=== PATIENT | male | born 1985 | race Caucasian/White ===

== ENCOUNTER 2021-04-12 13:39 | Inpatient (IN) | payer BC, OTHER ==
[~2021-04-12] VITALS: Ht 172.7 cm; Wt 59.6 kg
[~2021-04-12 13:39] MED LIST: VANCOMYCIN HCL 1,000 MG, VIAL MATE ADAPTER 1 EACH in NS 250 ML IV SCH
[2021-04-12 15:14] LABS: BASO % 0.2 % (0.0-1.0); HEMATOCRIT 46.3 % (42.0-52.0); LYMPH # 1.1 10^3/uL (1.5-5.0); LYMPH % 4.5 % (24.0-44.0); MEAN CORPUSCULAR HGB CONC 34.6 g/dl (32.0-36.5); MEAN CORPUSCULAR VOLUME 83.9 fl (80.0-96.0); MONO # 1.1 10^3/uL (0.0-0.8); MONO % 4.3 % (2.0-8.0); NEUTROPHILS # 22.1 10^3/uL (1.5-8.5); NEUTROPHILS % 90.1 % (36.0-66.0); PLATELET COUNT, AUTOMATED 339 10^3/uL (150-450); RED BLOOD COUNT 5.52 10^6/uL (4.30-6.10); WHITE BLOOD COUNT 24.5 10^3/uL (4.0-10.0)
[2021-04-12 15:51] LABS: ALBUMIN 5.2 GM/DL (3.2-5.2); ALT/SGPT 44 U/L (12-78); BILIRUBIN,DIRECT 0.2 MG/DL (0.0-0.2); BILIRUBIN,TOTAL 0.9 MG/DL (0.2-1.0); LIPASE 194 U/L (73-393); TOTAL PROTEIN 8.7 GM/DL (6.4-8.2)
[2021-04-12] MEDS ORDERED: NS 1,000 ML IV ONE (16:00)
[2021-04-12] MEDS ORDERED: ISOVUE-370 76% 100ML VIAL As Ordered ONE (16:00)
[2021-04-12] MEDS ORDERED: ONDANSETRON 4MG/2ML VIAL IV ONE (16:00)
[2021-04-12] MEDS ORDERED: KETOROLAC 30 MG/ML 1ML VIAL IV ONE (16:00)
--- NOTE | 2021-04-12 16:28 | REP ---
INDICATION: abd pain. COMPARISON: None TECHNIQUE: Axial contrast-enhanced images from the lung bases to the pubic symphysis using 100 cc Isovue 370 intravenous contrast material. . This CT examination was performed using the following dose reduction techniques: Automated exposure control, adjustment of mA and/or kv according to the patient's size, and the use of iterative reconstruction technique. FINDINGS: Fatty infiltration to the liver noted without focal hepatic lesion. The spleen, pancreas, gallbladder, bilateral adrenal glands and kidneys are normal. The enteric system including stomach, small, and large bowel appears normal. No evidence for obstruction or acute inflammatory process. Normal terminal ileum and appendix are identified in the right lower quadrant. Pelvis demonstrates normal bladder and age-appropriate prostate/seminal vesicles. No ascites. No free air. No intraperitoneal or retroperitoneal adenopathy. Abdominal aorta and vasculature appear normal. Musculoskeletal structures are intact and without acute osseous abnormality. IMPRESSION: No acute abdominopelvic pathology appreciated. Hepatosteatosis. <Electronically signed by Markell Guillory > 04/12/21 [id number]
[2021-04-12 17:07] LABS: VENOUS BASE EXCESS -8.5 (-2.0-2.0); VENOUS HCO3 17.2 MEQ/L (23.0-27.0); VENOUS PARTIAL PRESSURE CO2 36.5 mmHg (38.0-50.0); VENOUS PH 7.291 UNITS (7.330-7.430); VENOUS STANDARD HCO3 17.5 MEQ/L; VENOUS TOTAL CO2 18.3 MEQ/L (24.0-28.0)
[2021-04-12 17:14] LABS: OSMOLALITY SERUM 294 MOSM/KG (275-295)
[2021-04-12 17:15] LABS: ACETONE/KETONE 23.05 MG/DL (<2.81)
[2021-04-12 17:27] LABS: HEMOGLOBIN A1c 4.7 %
[2021-04-12 18:20] LABS: AMPHETAMINES LEVEL URINE NEGATIVE (NEGATIVE); BARBITURATES URINE NEGATIVE (NEGATIVE); BENZODIAZEPINES URINE NEGATIVE (NEGATIVE); CANNABINOIDS URINE POSITIVE (NEGATIVE); COCAINE METABOLITE URINE NEGATIVE (NEGATIVE); METHADONE URINE NEGATIVE (NEGATIVE); OPIATES URINE NEGATIVE (NEGATIVE); PHENCYCLIDINE URINE NEGATIVE (NEGATIVE)
[2021-04-12 18:22] LABS: CPK CREATINE PHOSPHOKINASE 115 U/L (39-308)
[2021-04-12] MEDS ORDERED: MORPHINE 4 MG/ML 1ML VIAL/SYRINGE (J2270) IV ONE (18:50)
[2021-04-12 19:40] LABS: ACETAMINOPHEN LEVEL < 2.0 UG/ML (10.0-30.0); ETHYL ALCOHOL (ETHANOL) 0.007 % (0.000-0.010); SALICYLATE LEVEL < 1.7 MG/DL (5.0-30.0)
[2021-04-12] MEDS ORDERED: NS 1,000 ML IV SCH (20:30)
[2021-04-12] MEDS ORDERED: ONDANSETRON 4MG/2ML VIAL IV PRN (20:50)
--- NOTE | 2021-04-12 21:01 | HPEPDOC ---
[facility] Medical History & Physical Date of Admission Apr 12, 2021 Date of Service: Apr 12, 2021 History and Physical CHIEF COMPLAINT: Vomiting HISTORY OF PRESENT ILLNESS: This is a 36-year-old male history of Crohn's who presents due to vomiting today. He tells me that starting at 5 AM he woke up feeling nauseous and immed iately started throwing up as what he describes to be very violently. Vomiting happened throughout the day and he started feeling abdominal discomfort which he attributed to muscle cramping from all the vomiting. He says that the vomit was nonbilious and nonbloody. He hasn't had such episodes in the past. He denies any fevers or chills. He denies any diarrhea although he often gets diarrhea due to his history of Crohn's. On review of systems he endorses a mild headache as well as a brief episode of shortness of breath and felt as though his breathing was labored while in the emergency department but since resolved. He tells me his resting heart rate is usually in the 50s and his current heart rate of 90 is high for him. He endorses alcohol use but only very sparingly saying his last drink was last night on a special occasion but he did not drink excessively. History denies drinking antifreeze or car coolant fluid/ ethylene glycol/methanol. He denies any suicidal ideation denies being exposed to fumes in the house heating is not turned on and he was not in a garage with his car running. On further questioning he tells me he smokes cannabis but he's never had vomiting secondary to the cannabis use and his last use was 3 days ago. He denies any eating disorders such as anorexia and bulimia. Denies having a known history of diabetes in himself or the family. Denies any sick contacts. His partners sleeps beside him did not have any symptoms Denies glue sniffing or consumption In the emergency department I asked for a carbon monoxide level, salicylic acid, acetaminophen levels which were negative. Alcohol level also negative Beta hydroxybutyrate level was increased to 23. ABG shows metabolic acidosis. Urine drug screen was negative except for cannabis His blood sugar was found to be low 63 CT abdomen for/pelvis was obtained which was negative for acute pathology IV Zofran was given which resolved patient's nausea and he hasn't vomited since PAST MEDICAL/SURGICAL HISTORY: Crohn's SOCIAL HISTORY: Denies drinking alcohol regularly drinks only sporadically on special occasions last drink was last evening Denies tobacco use Denies illicit drug use other than occasional cannabis use FAMILY HISTORY: Reviewed and none contributory to this admission ALLERGIES: Please see below. REVIEW OF SYSTEMS: 10 point review of systems complete all negative otherwise stated in HPI HOME MEDICATIONS: Please see below. PHYSICAL EXAMINATION: Constitutional: Awake and alert, in no apparent distress ENT: Sclera are clear. Mucosa is moist. Respiratory: Lungs CTA bilaterally. No respiratory distress. No use of accessory muscles. Cardiovascular: RRR S1 and S2 are normal, no murmur Gastrointestinal: Abdomen is soft, non distended, non tender, BS present. Musculoskeletal: No lower extremity edema. RUE 5/5, LUE 5/5, BLE 5/5 Neurologic: No focal neurological deficit. Mental Status: A&O x3, normal affect Skin: Sunburn on both upper extremities and back of neck LABORATORY DATA: See below. IMAGING: CT abdomen/pelvis w IV contrast, impressions: No acute abdominopelvic pathology appreciated. Hepatosteatosis. CXR ordered MICROBIOLOGY: Please see below. ASSESSMENT/PLAN 36-year-old male medical history of Crohn's presents due to excessive vomiting all day found to have high anion gap metabolic acidosis with ketoacidosis and lactic acidosis and is being admitted to the medical service for further workup and management. # High anion gap metabolic acidosis with ketoacidosis and lactic acidosis - Exact etiology not yet clear - Given his hypoglycemia will give him fluids by D5NS, while trending his BMP every 4hrs and checking Mg and Phos. Monitor and replace electrolytes. - If his sugars start to rise enough, will start insulin and monitor his anion gap. - Will obtain blood cultures first then start him on broad spectrum ABx with IV Vanc and Zosyn - Discussed the case with Dr. Gray, possibility of euglycemic DKA, vs alcoholic ketoacidosis, vs sepsis, vs other etiology - I consulted Dr Gray, nephrology, and appreciate his recommendations. - Other rare causes of increase AG metabolic acidosis were excluded as in HPI and labs. # Possible Sepsis, source unknown: meets SIRS (RR>20, WBC>12, HR>90). IVFs. LA 2.2 initially. Fu procalcitonin. Ordered BCx. Started IV abx broad spectrum. Fu CXR. # SOB: Episode was brief and has since resolved. Suspicion of PE is low however f/u d-dimer to essentially exclude PE. Fu CXR. Fu procalcitonin. # Vomiting: now better with zofran. Per patient very violent vomiting all day. Continue Zofran PRN. IVFs. Monitor and replace electrolytes. # Abdominal pain: CT abdomen negative for acute pathology. Lipase level ok. Having regular BMs without diarrhea. Could be MSK from the excessive vomiting earlier. Abdominal pain resolved at this time. # Crohns: Stable # DVT prophylaxis: Lovenox A Yousef Hospitalist Vital Signs Vital Signs Date Time Temp Pulse Resp B/P (MAP) Pulse Ox O2 Delivery O2 Flow Rate FiO2 04/12/21 19:25 19 97 Room Air 04/12/21 18:59 99.2 78 116/70 (85) Laboratory Data Labs 24H Laboratory Tests 2 04/12/21 14:53: Urine Opiates Screen NEGATIVE, Urine Methadone Screen NEGATIVE, Urine Barbiturates Screen NEGATIVE, Urine Phencyclidine Screen NEGATIVE, Urine Amphetamines Screen NEGATIVE, Urine Benzodiazepines Screen NEGATIVE, Urine Cocaine Metabolite Screen NEGATIVE, Urine Cannabinoids Screen POSITIVEH 04/12/21 15:02: Immature Granulocyte % (Auto) 0.9, Neutrophils (%) (Auto) 90.1H, Lymphocytes (%) (Auto) 4.5L, Monocytes (%) (Auto) 4.3, Eosinophils (%) (Auto) 0.0, Basophils (%) (Auto) 0.2, Neutrophils # (Auto) 22.1H, Lymphocytes # (Auto) 1.1L, Monocytes # (Auto) 1.1H, Eosinophils # (Auto) 0.0, Basophils # (Auto) 0.0, Nucleated Red Blood Cells % (auto) 0.0, Urine Color YELLOW, Urine Appearance CLEAR, Urine pH 5.0, Urine Specific [place] 1.019, Urine Protein 1+H, Urine Glucose (UA) NEGATIVE, Urine Ketones 2+H, Urine Blood 1+H, Urine Nitrite NEGATIVE, Urine Bilirubin NEGATIVE, Urine Urobilinogen 0.2, Urine Leukocyte Esterase NEGATIVE, Urine WBC (Auto) 3, Urine RBC (Auto) 1, Urine Hyaline Casts (Auto) 0, Urine Bacteria (Auto) NEGATIVE, Urine Squamous Epithelial Cells 0, Urine Sperm (Auto) , Osmolality 294, Magnesium Level 2.0, Total Bilirubin 0.9, Direct Bilirubin 0.2, Aspartate Amino Transf (AST/SGOT) 43H, Alanine Aminotransferase (ALT/SGPT) 44, Alkaline Phosphatase 63, Total Creatine Kinase 115, Total Protein 8.7H, Albumin 5.2, Albumin/Globulin Ratio 1.5, Lipase 194, Salicylates Level < 1.7L, Acetaminophen Level < 2.0L, Ethyl Alcohol Level 0.007, B-Hydroxybutyrate 23.05H 04/12/21 15:08: POC Glucose (Misc Panel) 63L, POC Sodium (Misc Panel) 138, POC Potassium (Misc Panel) 4.8, POC Chloride (Misc Panel) 106, POC Total CO2 (Misc Panel) 19.0L, POC Blood Urea Nitrogen (Misc Panel 20, POC Ionized Calcium (Misc Panel) 4.7, POC Creatinine (Misc Panel) 0.9, POC Hematocrit (Misc Panel) 48.0 04/12/21 17:00: Blood Gas Bicarbonate Standard 17.5, Venous Blood pH 7.291L, Venous Blood Partial Pressure CO2 36.5L, Venous Blood Partial Pressure O2 55.0H, Venous Blood Total Carbon Dioxide 18.3L, Venous Blood HCO3 17.2L, Venous Blood Oxygen Saturation 87.0H, Venous Blood Base Excess -8.5L, Estimated Mean Plasma Glucose 88, Hemoglobin A1c 4.7, Lactic Acid Level 2.2*H 04/12/21 19:05: Bedside Glucose (Misc Panel) 61L 04/12/21 19:32: Carboxyhemoglobin 1.0 CBC/BMP Laboratory Tests 04/12/21 15:02 Microbiology Microbiology 04/12/21 Respiratory Virus Panel (PCR) ([facility]) - Final, Complete Home Medications No Active Prescriptions or Reported Meds Allergies Coded Allergies: No Known Allergies (Verified , 05/13/03) A-FIB/CHADSVASC A-FIB History Current/History of A-Fib/PAF?: No FREDDIE GAVIRIA MD Apr 12, 2021 20:27
[2021-04-12 21:36] LABS: BLOOD UREA NITROGEN 20 MG/DL (7-18); CALCIUM LEVEL 8.8 MG/DL (8.5-10.1); CARBON DIOXIDE LEVEL 19 MEQ/L (21-32); CHLORIDE LEVEL 102 MEQ/L (98-107); CREATININE FOR GFR 0.87 MG/DL (0.70-1.30); GLOMERULAR FILTRATION RATE > 60.0 (>60); GLUCOSE, FASTING 74 MG/DL (70-100); MAGNESIUM LEVEL 1.9 MG/DL (1.8-2.4); PHOSPHORUS LEVEL 4.2 MG/DL (2.5-4.9); POTASSIUM SERUM 4.5 MEQ/L (3.5-5.1); SODIUM LEVEL 136 MEQ/L (136-145)
[2021-04-12] MEDS: D5W/0.9% SODIUM CHLORIDE 1,000 ML IV SCH (21:50)
[2021-04-12] MEDS ORDERED: PIPERACILLIN/TAZOBACTAM SOD 4.5 GM in D5W MINI-BAG PLUS 50 ML IV ONE (22:00)
[2021-04-12 22:30] VITALS: BP 116/68
[2021-04-12] MEDS ORDERED: MULTIVITAMIN -ADULT INJECTION 10 ML, THIAMINE INJection 100 MG, FOLIC ACID 1 MG in NS 1... IV ONE (23:00)
[2021-04-12] MEDS ORDERED: VANCOMYCIN HCL 750 MG, VIAL MATE ADAPTER 1 EACH in NS 250 ML IV ONE (23:00)
[2021-04-13] MEDS ORDERED: VANCOMYCIN HCL 500 MG in D5W MINI-BAG PLUS 100 ML IV ONE ×2
[2021-04-13] MEDS ORDERED: MAALOX 30 ML SUSP *UDC PO PRN (01:30)
[2021-04-13] MEDS: PANTOPRAZOLE 40MG VIAL (C9113 PER 1) IV SCH (02:05)
[2021-04-13 02:57] LABS: BLOOD UREA NITROGEN 20 MG/DL (7-18); CALCIUM LEVEL 8.2 MG/DL (8.5-10.1); CARBON DIOXIDE LEVEL 24 MEQ/L (21-32); CHLORIDE LEVEL 105 MEQ/L (98-107); CREATININE FOR GFR 1.13 MG/DL (0.70-1.30); GLOMERULAR FILTRATION RATE > 60.0 (>60); GLUCOSE, FASTING 129 MG/DL (70-100); POTASSIUM SERUM 3.7 MEQ/L (3.5-5.1); SODIUM LEVEL 137 MEQ/L (136-145)
[2021-04-13] MEDS: PIPERACILLIN/TAZOBACTAM SOD 4.5 GM in D5W MINI-BAG PLUS 50 ML IV SCH ×4 (03:28→22:06)
[2021-04-13] MEDS: D5W/0.9% SODIUM CHLORIDE 1,000 ML IV SCH ×2 (03:34→11:02)
[2021-04-13 06:00] VITALS: BP 87/50
[2021-04-13 06:29] VITALS: BP 90/62
[2021-04-13 06:37] LABS: HEMATOCRIT 34.7 % (42.0-52.0); MEAN CORPUSCULAR HEMOGLOBIN 29.6 pg (27.0-33.0); MEAN CORPUSCULAR HGB CONC 35.2 g/dl (32.0-36.5); MEAN CORPUSCULAR VOLUME 84.2 fl (80.0-96.0); PLATELET COUNT, AUTOMATED 251 10^3/uL (150-450); RED BLOOD COUNT 4.12 10^6/uL (4.30-6.10); WHITE BLOOD COUNT 11.5 10^3/uL (4.0-10.0)
[2021-04-13 06:41] LABS: HEMOGLOBIN 12.2 g/dl (13.5-17.5)
[2021-04-13 06:45] LABS: ALBUMIN 3.5 GM/DL (3.2-5.2); ALT/SGPT 24 U/L (12-78); BILIRUBIN,TOTAL 1.1 MG/DL (0.2-1.0); BLOOD UREA NITROGEN 19 MG/DL (7-18); CALCIUM LEVEL 8.3 MG/DL (8.5-10.1); CARBON DIOXIDE LEVEL 24 MEQ/L (21-32); CHLORIDE LEVEL 105 MEQ/L (98-107); CREATININE FOR GFR 1.09 MG/DL (0.70-1.30); GLOMERULAR FILTRATION RATE > 60.0 (>60); GLUCOSE, FASTING 89 MG/DL (70-100); PHOSPHORUS LEVEL 3.6 MG/DL (2.5-4.9); SODIUM LEVEL 139 MEQ/L (136-145); TOTAL PROTEIN 5.9 GM/DL (6.4-8.2)
[2021-04-13] MEDS ORDERED: VANCOMYCIN HCL 1,000 MG, VIAL MATE ADAPTER 1 EACH in NS 250 ML IV SCH (07:00)
[2021-04-13] MEDS ORDERED: PERCOCET 5MG/325MG TAB PO ONE (07:00)
--- NOTE | 2021-04-13 07:55 | REP ---
INDICATION: Leukocytosis COMPARISON: None. TECHNIQUE: Portable AP view of the chest FINDINGS: The mediastinum and cardiac silhouette are within normal limits for portable technique. The lung jeff are clear without acute consolidation, effusion, or pneumothorax. Skeletal structures are intact. IMPRESSION: No acute cardiopulmonary process appreciated. <Electronically signed by Markell Guillory > 04/13/21 [id number]
[2021-04-13] MEDS: ENOXAPARIN 40MG/0.4ML SYRINGE (J1650 PER 10MG) SC SCH (09:37)
[2021-04-13 10:20] LABS: ACETONE/KETONE 9.46 MG/DL (<2.81)
[2021-04-13 11:27] LABS: BLOOD UREA NITROGEN 16 MG/DL (7-18); CALCIUM LEVEL 8.5 MG/DL (8.5-10.1); CARBON DIOXIDE LEVEL 25 MEQ/L (21-32); CHLORIDE LEVEL 108 MEQ/L (98-107); CREATININE FOR GFR 1.04 MG/DL (0.70-1.30); GLOMERULAR FILTRATION RATE > 60.0 (>60); GLUCOSE, FASTING 112 MG/DL (70-100); POTASSIUM SERUM 4.1 MEQ/L (3.5-5.1); SODIUM LEVEL 139 MEQ/L (136-145)
[2021-04-13 14:00] VITALS: BP 103/56
[2021-04-13] MEDS: NS 1,000 ML IV SCH (14:51)
[2021-04-13 16:09] LABS: HEPATITIS B SURFACE ANTIGEN NEGATIVE (NEGATIVE)
[2021-04-13 16:36] LABS: HEPATITIS C VIRUS ABY INDEX 0.1 INDEX (<0.8)
[2021-04-13 16:37] LABS: HEPATITIS B CORE ANTIBODY IGM NEGATIVE (NEGATIVE)
[2021-04-13 16:39] LABS: HEPATITIS A ANTIBODY IGM NEGATIVE (NEGATIVE)
[2021-04-13] MEDS ORDERED: CETIRIZINE (ZyrTEC) 10 MG TAB PO ONE (17:15)
[2021-04-13 19:22] LABS: BLOOD UREA NITROGEN 13 MG/DL (7-18); CALCIUM LEVEL 8.7 MG/DL (8.5-10.1); CARBON DIOXIDE LEVEL 27 MEQ/L (21-32); CHLORIDE LEVEL 108 MEQ/L (98-107); CREATININE FOR GFR 0.92 MG/DL (0.70-1.30); GLOMERULAR FILTRATION RATE > 60.0 (>60); GLUCOSE, FASTING 82 MG/DL (70-100); POTASSIUM SERUM 4.1 MEQ/L (3.5-5.1); SODIUM LEVEL 141 MEQ/L (136-145)
--- NOTE | 2021-04-13 21:13 | IPNPDOC ---
Date Seen The patient was seen on 04/13/21. Progress Note SUBJECTIVE: Sivakumar was seen and examined this morning by the hospitalist service while lying upright in bed. He reports continued lack of nausea since being admitted with no episodes of vomiting. He is yet to have a bowel movement. He has somewhat improvement in his overall hunger but is still only eating small bits of his food. He reports some residual chest achiness as well as right lower abdominal pain that he attributes to the forceful vomiting from yesterday. He denies any current or overnight fever, chills, night sweats, sharp chest pain, palpitations, shortness of breath, dysuria, hematuria. OBJECTIVE PHYSICAL EXAMINATION: VITAL SIGNS: Please see below. GENERAL: Pleasant young male lying upright in bed. No acute distress. HEENT: Normocephalic, atraumatic. Noninjected, anicteric sclera. Oral cavity: No pharyngeal erythema or exudate. Mucous membranes appear to be moist. Neck: No lymphadenopathy appreciated. Trachea midline. Neck is supple. CARDIOVASCULAR: Dry car to rate, regular rhythm. Normal S1, S2. No murmurs or rubs are appreciated. RESPIRATORY: Lungs are clear to endoscopy bilaterally with no adventitious breath sounds appreciated. Breathing room air. No accessory muscle use. Symmetric chest expansion. ABDOMINAL: Normoactive bowel sounds. There is tenderness of the right lower quadrant. There is no guarding or rigidity. Abdomen is soft and nondistended. There is positive Lynn sign. No significant hepatosplenomegaly appreciated. EXTREMITIES: Bilateral lower extremities are free of edema. 2+ radial pulses bilaterally. No clubbing or cyanosis appreciated. NEUROLOGICAL: No focal deficits appreciated. Non-dysarthric speech. Responding probably all questions commands. PSYCHOLOGICAL: Pleasant mood. Affect appears appropriate. LABORATORY DATA, IMAGING STUDIES, MICROBIOLOGY: Please see below. ASSESSMENT AND PLAN: Sivakumar is a pleasant young male with history of Crohn's disease who presented on 04/12 with a chief complaint of forceful projectile vomiting. He was found to be in high anion gap metabolic acidosis with ketoacidosis and lactic acidosis with no clear etiology and possibly due to euglycemic DKA versus alcoholic ketoacidosis versus sepsis versus other etiology. #High anion gap metabolic acidosis with ketoacidosis and lactic acidosis, improved -Patient's ketones decreased today to 9 from 23 yesterday. Repeat lactic acid came down to 1. In addition, anion gap was 6 today. Patient was hypoglycemic yesterday and started on D5 W. With the D5 as well as tolerating oral intake. His serum glucose improved to over 100 this morning. As a result, we switched his fluid resuscitation to normal saline from D5. Patient denied multiple causes of high anion gap metabolic acidosis upon admission. We'll continue to monitor his electrolytes every 4 hours and those have remained unremarkable. The nephrology service (Dr. Mi) consulted upon admission and we appreciate their insights regulations. Of note, toxicology did not show alcohol, salicylate or acetaminophen intoxication/overdose. Was positive for marijuana. #Leukocytosis -White count improved today to 11 from 24. -Blood cultures after 24 hours have shown no growth. Negative respiratory panel. -Etiology still unclear and may have a component of reactivity from excessive vomiting. -He was started on both vancomycin and Zosyn yesterday. He does have a history of MRSA in the distant past but MRSA's PCR was negative. Upon this admission. With improvement in his his white count, vancomycin was stopped and we will continue with Zosyn today for day 2 in the setting of pro-calcitonin of 1.24 #Nausea and vomiting, resolved -Patient was given a dose of Zofran in the ED, which significantly improved his nausea and he has not vomited since. He does have as needed Zofran. We will continue with the Protonix was started upon admission. -Patient did report occasionally smoking marijuana and this was positive on toxicology, although he reports never having vomiting as a result of that. #Fatty liver on imaging -CT abdomen and pelvis showed hepato-steatosis. We have ordered a right upper quadrant ultrasound to further assess this. Patient denies any significant alcohol history. Just as he did on admission yesterday. He does report taking 2 tablets of Tylenol nearly everyday for the past 2 years due to chronic neck and back pain. #H/o Crohn's Disease -This appears to be stable. Patient reports he takes only an as needed medication at home when he is in acute exacerbation. He has not had a bowel movement since being admitted. Usually he has diarrhea as a result of his Crohn's. #DVT prophylaxis: Continue with the subcutaneous Lovenox DISPOSITION: Pending continued improvement in his metabolic acidosis with further evaluation for possible etiology. Attending Attestation: Patient independently seen and examined. I have discussed in detail with the resident the findings and plan of treatment as documented by the resident. I agree with their findings and treatment plan. I will continue to follow the patient during this hospital stay. VS, I&O, 24H, Fishbone Vital Signs/I&O Vital Signs Date Time Temp Pulse Resp B/P (MAP) Pulse Ox O2 Delivery O2 Flow Rate FiO2 04/13/21 14:00 97.9 58 16 103/56 (72) 97 Room Air I&O- Last 24 Hours up to 6 AM 04/13/21 06:00 Intake Total 2025 ml Output Total 650 ml Balance 1375 ml Laboratory Data 24H LABS Laboratory Tests 2 04/12/21 21:30: D-Dimer, Quantitative < 270, Lactic Acid Followup at 4 Hours 1.1 04/13/21 00:14: Methicillin-Resist S.aureus DNA PCR NOT DETECTED 04/13/21 01:53: Anion Gap 8, Glomerular Filtration Rate > 60.0, Calcium Level 8.2L 04/13/21 06:04: Anion Gap 10, Glomerular Filtration Rate > 60.0, Calcium Level 8.3L, Nucleated Red Blood Cells % (auto) 0.0, Lactic Acid Level 1.0, Phosphorus Level 3.6, Magnesium Level 2.0, Total Bilirubin 1.1H, Aspartate Amino Transf (AST/SGOT) 20, Alanine Aminotransferase (ALT/SGPT) 24, Alkaline Phosphatase 41L, Total Protein 5.9#L, Albumin 3.5#, Albumin/Globulin Ratio 1.5, B-Hydroxybutyrate 9.46H, Hepatitis A IgM Antibody NEGATIVE, Hepatitis B Surface Antigen NEGATIVE, Hepatitis B Core IgM Antibody NEGATIVE, Hepatitis C Antibody Index 0.1 04/13/21 10:34: Anion Gap 6L, Glomerular Filtration Rate > 60.0, Calcium Level 8.5 04/13/21 18:09: Anion Gap 6L, Glomerular Filtration Rate > 60.0, Calcium Level 8.7 CBC/BMP Laboratory Tests 04/13/21 01:53 04/13/21 06:04 04/13/21 10:34 04/13/21 18:09 Microbiology Microbiology 04/12/21 Blood Culture - Preliminary, Resulted No growth after 24 hours . All specim... 04/12/21 Blood Culture - Preliminary, Resulted No growth after 24 hours . All specim... 04/12/21 Respiratory Virus Panel (PCR) ([facility]) - Final, Complete ISABEL,PIA D.O. Apr 13, 2021 21:13 SABINO EATON MD Apr 14, 2021 06:51
[2021-04-13 21:48] VITALS: BP 120/74
--- NOTE | 2021-04-13 22:00 | CR ---
CONSULTATION DATE: 04/13/2021 REQUESTING PHYSICIAN: Dr. Frank Martin CONSULTING PHYSICIAN: Dr. Nick Mi REASON FOR CONSULTATION: Management of acute renal failure and metabolic acidosis. CHIEF COMPLAINT: The patient presented to the hospital yesterday with abdominal pain, nausea and vomiting. HISTORY OF PRESENT ILLNESS: Sivakumar Jimenez is a 36-year-old male with a past medical history of Crohn's disease, currently not taking any medications. He woke up early in the morning yesterday before presenting to the hospital. He was nauseated and he was having vomiting. He was unable to keep any food or liquids down. He also complained of headache. When he presented to the Emergency Room he was found to have leukocytosis with a white cell count of 24.5. He was in high anion gap metabolic acidosis with an anion gap of 15. He had lactic acidosis and ketoacidosis. The patient was discussed with myself by the admitting physician, Dr. Frank Martin. And because of his combined metabolic acidosis with lactic acidosis and ketoacidosis, the patient was admitted under the Hospitalist service. He was started on dextrose containing IV fluids. I saw and evaluated the patient today morning at the bedside. He is also getting empiric IV antibiotics as well. He reports that he is feeling much better today as compared with yesterday. PAST MEDICAL HISTORY: The patient's past medical history is significant for Crohn's disease. PAST SURGICAL HISTORY: No significant past surgical history. FAMILY HISTORY: No significant family history of end-stage renal disease. SOCIAL HISTORY: The patient works in a warehouse. He occasionally drinks. He regularly smokes marijuana and he does not smoke tobacco. ALLERGIES: No known drug allergies. REVIEW OF SYSTEMS: Constitutional: He denies any fevers or chills. Eyes: He denies any blurry vision, double vision. ENT: Denies any dysphagia or odynophagia. Cardiovascular: Denies any chest pain, palpitations. Respiratory: Denies any shortness of breath or cough. GI: He reported nausea, vomiting and abdominal pain on arrival and he has a history of Crohn's disease and has two loose bowel movements every day. Genitourinary: He denies any dysuria or hematuria. Musculoskeletal: He denies any muscle aches and pains. Skin: Denies any rashes or ulcers. Hematological/Oncological: Denies any easy bleeding or bruising. INVESTMENT BANKER: Denies any strokes or seizures. All other review of systems is negative. PHYSICAL EXAMINATION: GENERAL APPEARANCE: The patient is awake, alert, oriented x3. VITAL SIGNS: Temperature is 97.9 degrees Fahrenheit, blood pressure 103/56, pulse is 58, respiratory rate of 16, saturating 97% on room air. HEAD AND NECK: Extraocular muscles intact. Pupils are equally round and reactive to light. Mucous membranes are moist. Neck is supple. There is no jugular venous distention. CARDIOVASCULAR: S1, S2, regular rate. EXTREMITIES: No edema of the bilateral lower extremities. RESPIRATORY: Chest is clear to auscultation bilaterally. Bilaterally currently no rales or rhonchi. ABDOMEN: Soft, positive bowel sounds, nontender, no organomegaly. He has mild discomfort on deep palpation in left lower quadrant and right lower quadrant. GENITOURINARY: No hernias noted. Bladder is not palpable. MUSCULOSKELETAL: No clubbing, no cyanosis. Pulses are 2+. INVESTMENT BANKER: No focal deficits. Power is 5/5 in all extremities. LABORATORY REVIEW: CBC on arrival showed a white blood cell count of 25.4. CBC done today morning showed a white blood cell count of 11.5, hemoglobin 12.2, platelet count 251. Urinalysis done yesterday showed 1+ protein, 2+ ketones, 1+ blood. Negative leukocyte esterase. VBG done yesterday showed a pH of 7.29. BMP on arrival showed sodium of 136, potassium 4.5, chloride 102, bicarbonate 19, anion gap 15, BUN 20, creatinine 0.87, lactic acid 2.2. Procalcitonin was 1.24. Urine toxicology was positive for cannabinoids. Beta hydroxybutyrate was 23.05 on arrival and it is 9.4 today. Ethyl alcohol level was 0.007 yesterday. Hepatitis A, B and C serologies are negative. Microbiology - respiratory viral panel is negative. Blood cultures are pending. IMAGING DATA: CAT scan of the abdomen and pelvis was done yesterday. It showed no acute abdominal pelvic pathology. Hepatosteatosis was noted. CURRENT INPATIENT MEDICATIONS: The patient's medications were all reviewed by myself and he got one banana bag yesterday. He was given a normal saline bolus. He was getting D5 normal saline at 150 mL an hour. He is also on Zosyn 4.5 gram q. 6 hourly. Vancomycin was also given. He is on Lovenox 40 mg subcutaneously daily. Zyrtec 10 mg p.o. one dose, Zofran p.r.n., Percocet one dose and Protonix 40 mg IV daily. ASSESSMENT AND PLAN: 1. High anion gap metabolic acidosis - The patient had combined lactic acidosis and ketoacidosis, most likely induced by alcohol intake. He was getting dextrose containing IV normal saline. Repeat beta hydroxybutyrate is 9.4 today which is improving as compared with yesterday. I would continue the IV fluids until tonight. Another level will be checked tomorrow morning. 2. Hypoglycemia it was secondary to the use of alcohol. He is getting containing fluids and glucose levels are getting better. His point of care glucose on arrival yesterday was 61. 3. Leukocytosis most likely it is reactive in nature. However, the patient has a history of Crohn's disease. He is empirically being covered with Vancomycin and Zosyn. If cultures are negative, then antibiotics can be stopped. 4. Abdominal pain - The patient has a history of Crohn's disease. However CAT scan did not show any acute pathology. He got one dose of Percocet and he is getting Zofran for now. Clinically he is feeling much better. Thank you for involving me in the care of this patient. I shall be happy to follow the patient along with you tomorrow morning.
--- NOTE | 2021-04-13 22:08 | REP ---
INDICATION: hepatosteatosis on CT abd/pel w/ slightly elev AST COMPARISON: None. TECHNIQUE: Real time suárez scale ultrasound examination using curved array transducer. FINDINGS: Liver demonstrates normal contour and size with mildly hypoechoic texture and prominent echogenic portals. These findings are nonspecific but may reflect underlying hepatitis. No focal hepatic lesions are identified. Pancreas is normal. Gallbladder is unremarkable and without gallstones, wall thickening, or pericholecystic fluid. No biliary ductal dilatation is appreciated and the common bile duct measures 2.6 mm diameter. Right kidney is normal and measures 11.2 x 5.6 x 4.5 cm. No hydronephrosis or nephrolithiasis. No ascites. IMPRESSION: Hepatic findings are nonspecific and possibly normal but raise the possibility of hepatitis. Otherwise unremarkable examination. <Electronically signed by Markell Guillory > 04/13/21 [id number]
[2021-04-14] MEDS: NS 1,000 ML IV SCH ×2 (00:24→09:31)
[2021-04-14] MEDS: PANTOPRAZOLE 40MG VIAL (C9113 PER 1) IV SCH (01:14)
[2021-04-14] MEDS: PIPERACILLIN/TAZOBACTAM SOD 4.5 GM in D5W MINI-BAG PLUS 50 ML IV SCH ×2 (03:55→09:31)
[2021-04-14 06:00] VITALS: BP 118/68
[2021-04-14 06:42] LABS: BASO % 0.7 % (0.0-1.0); EOS # 0.2 10^3/uL (0.0-0.5); EOS % 3.7 % (0.0-3.0); HEMATOCRIT 33.7 % (42.0-52.0); HEMOGLOBIN 11.4 g/dl (13.5-17.5); LYMPH # 2.2 10^3/uL (1.5-5.0); LYMPH % 36.2 % (24.0-44.0); MEAN CORPUSCULAR HGB CONC 33.8 g/dl (32.0-36.5); MEAN CORPUSCULAR VOLUME 85.8 fl (80.0-96.0); MONO # 0.5 10^3/uL (0.0-0.8); MONO % 7.9 % (2.0-8.0); NEUTROPHILS # 3.1 10^3/uL (1.5-8.5); NEUTROPHILS % 51.3 % (36.0-66.0); PLATELET COUNT, AUTOMATED 233 10^3/uL (150-450); RED BLOOD COUNT 3.93 10^6/uL (4.30-6.10); WHITE BLOOD COUNT 5.9 10^3/uL (4.0-10.0)
[2021-04-14 07:04] LABS: ACETONE/KETONE 5.32 MG/DL (<2.81); ALBUMIN 3.2 GM/DL (3.2-5.2); ALT/SGPT 29 U/L (12-78); BILIRUBIN,TOTAL 0.8 MG/DL (0.2-1.0); BLOOD UREA NITROGEN 12 MG/DL (7-18); CALCIUM LEVEL 8.2 MG/DL (8.5-10.1); CARBON DIOXIDE LEVEL 27 MEQ/L (21-32); CHLORIDE LEVEL 108 MEQ/L (98-107); CREATININE FOR GFR 0.95 MG/DL (0.70-1.30); GLOMERULAR FILTRATION RATE > 60.0 (>60); GLUCOSE, FASTING 87 MG/DL (70-100); MAGNESIUM LEVEL 1.9 MG/DL (1.8-2.4); PHOSPHORUS LEVEL 2.8 MG/DL (2.5-4.9); POTASSIUM SERUM 3.8 MEQ/L (3.5-5.1); SODIUM LEVEL 141 MEQ/L (136-145); TOTAL PROTEIN 5.6 GM/DL (6.4-8.2)
[2021-04-14] MEDS: ENOXAPARIN 40MG/0.4ML SYRINGE (J1650 PER 10MG) SC SCH (08:37)
--- NOTE | 2021-04-14 12:30 | IPN ---
PROGRESS NOTE DATE: 04/14/2021 SUBJECTIVE: Patient was seen and examined at the bedside today morning. He reports much better today as compared with yesterday. He denies any more nausea or vomiting. His appetite is getting better. His energy level is better. His renal function is stable. Beta hydroxybutyrate is still high at 5.3 but improving as compared with yesterday. He continues to be on intravenous (IV) fluid hydration. OBJECTIVE: Vital signs: Temperature is 97.4 degrees Fahrenheit, blood pressure 118/68, pulse is 84, respiratory rate of 18, saturating 98% on room air. Intake and output: Urine output recorded is 1.8 liters yesterday, 700 mL so far today since overnight. Weight in the bed scale is not available. PHYSICAL EXAMINATION: GENERAL: Patient is awake, alert, oriented times three, lying in bed in no apparent distress. HEAD AND NECK: Extraocular muscles are intact. Pupils equally round and reactive to light. Mucous membranes are moist. Neck is supple. There is no jugular venous distention (JVD). CARDIOVASCULAR: S1, S2, regular rate. No edema of the bilateral lower extremities. RESPIRATORY: Chest is clear to auscultation bilaterally. Bilateral equal air entry. No rales or rhonchi. ABDOMEN: Soft. Positive bowel sounds. Nontender. No organomegaly. MUSCULOSKELETAL: No clubbing or cyanosis. Pulse are 2+. CENTRAL NERVOUS SYSTEM: No focal deficit. Power is 5/5 in all extremities. LABORATORY REVIEW: CBC showed a WBC 5.9, hemoglobin 11.4, platelets are 233. BMP shows sodium 141, potassium 3.8, chloride 108, bicarbonate 27, BUN 12, creatinine is 0.9. Calcium 8.2, phosphorus 2.8, magnesium is 1.9. Albumin 3.2. Toxicology: Beta hydroxybutyrate is 5.3, which is still high but improving as compared with yesterday. IMAGING: A liver ultrasound was done, which shows a possibility of hepatitis. CURRENT INPATIENT MEDICATIONS: Patient's medications were all reviewed by myself. He was getting IV normal saline, which has been stopped now. He still continues to be on IV Zosyn. Rest of the medications are same as compared with yesterday. ASSESSMENT AND PLAN: 1. High anion gap metabolic acidosis. Patient's acidosis is getting better. Beta hydroxybutyrate is improving. It has dropped by more than 50% since yesterday. IV fluids can be stopped now. 2. Hypoglycemia. It has improved with dextrose-containing fluids, and he is able to eat now. Glucose levels are within the normal range. 3. Leukocytosis. It is improving. Patient is empirically on IV Zosyn. All the culture are negative so far. DISPOSITION: Patient's beta hydroxybutyrate will be checked in the afternoon. If it is within the normal range, then patient can be discharged home.
[2021-04-14 14:00] VITALS: BP 109/62
[2021-04-14] MEDS ORDERED: AUGM500T34 PO (15:37)
--- NOTE | 2021-04-14 20:45 | DS.PDOC ---
Discharge Summary General Date of Admission Apr 12, 2021 at 19:59 Date of Discharge Wednesday, April 14, 2021 Attending Physician: SABINO EATON MD Specialist/Consultants Involve: ASHA MI MD Discharge Summary PROCEDURES PERFORMED DURING STAY: None ADMITTING DIAGNOSES: High anion gap metabolic acidosis with ketoacidosis and lactic acidosis Possible sepsis, unknown source Shortness of breath Vomiting Abdominal pain History of Crohn's disease DISCHARGE DIAGNOSES: High anion gap metabolic acidosis with ketoacidosis and lactic acidosis, resolved. Vomiting, resolved Abdominal pain, resolved Shortness of breath, resolved Fatty liver History of Crohn's disease COMPLICATIONS/CHIEF COMPLAINT: Metabloic Acidosis,Vomiting. HISTORY OF PRESENT ILLNESS: Cristy is a pleasant 36yo male with PMHx of Crohn's disease who [facility] with chief complaint of vomiting. He woke on the morning of 04/12 around 5 AM due to nausea and soon thereafter began vomiting quite frequently and forcefully. The emesis was described as nonbloody and, nonbilious. With the vomiting, he began to feel abdominal discomfort which he believes was related to the shear force of his vomiting. He denies ever having such forceful and frequent emesis. He also denied associated chills, fever, or diarrhea. Of note, patient usually has looser stools/diarrhea as his baseline due to his history of Crohn's disease. Upon review of systems for admission exam ination, he reported an associated mild headache with brief episodes of dyspnea. Patient felt his breathing was labored during these episodes of shortness of breath, but they soon resolved upon his presentation to the ED. On a side note, the patient has a baseline low resting heart rate in the 50s, so his initial heart rate in the ED in the 90s was abnormally high for him. On further review questioning, the patient did report having for hard seltzer cold beverages over 10 hour. The day before (04/11) while attending an outdoor get-together for his sister. He usually does not drink that frequently, averaging one drink every 3-4 months. He was diagnosed roughly 5 or 6 years ago with Crohn's disease, and prior to that. He does report heavy alcohol use for about 10 years, specifically on the weekends. An extensive specific rationing review was carried out and the patient denied drinking any car coolant fluid/ethylene glycol/methanol/antifreeze. He does report smoking marijuana but never as had significant vomiting secondary to disuse. He further denied any eating disorder such as bulimia or anorexia and denies having a personal or known family history of diabetes. He denied any sick contacts and reports his girlfriend whom he sleeps beside regularly. Does not have any current symptoms. He also denied any glue sniffing. In the emergency department, the admitting service asked for levels of acetaminophen, salicylic acid, and carbon monoxide, which all ultimately were negative. I'll call levels also negative. Relevant labs in the ED revealed an elevated beta hydroxybutyrate (23) with metabolic acidosis, high anion gap (AG 15) disease on ABG. Blood sugar was 63. Lactic was elevated as well at 2.2. His nausea and he did not vomit afterwards. Full urine drug screen was negative except for marijuana. Patient was admitted under the care of the hospital service primarily for high anion gap metabolic acidosis and lactic acidosis with hypoglycemia. HOSPITAL COURSE: There is no clear etiology for patient's high anion gap metabolic acidosis with ketoacidosis and lactic acidosis. Due to his hypoglycemia. He was started on D5 normal saline and his BMP with magnesium and phosphorus levels were trended every 4 hours. Initial blood cultures were obtained and he was started on broad- spectrum antibiotics in the form of IV vancomycin and Zosyn. The case was discussed with the on-call incoming freight clerk (Dr. Mi), and the possibility of euglycemic DKA versus alcoholic ketoacidosis versus sepsis versus other etiology were all discussed. The other rare causes of high anion gap metabolic acidosis were excluded. Upon admission, review of systems and by labs. A chest x-ray due to his previous episodes of dyspnea was ordered and was unremarkable. A CT abdomen was negative for any acute pathology, but did show some hepato- steatosis. On hospital day 2, MRSA PCR was negative and subsequently the IV vancomycin was stopped and only Zosyn was continued. Patient's blood sugars improved to over 100 with the D5 normal saline and he was subsequently switched to normal saline. He slowly began to tolerate more oral intake and his appetite steadily improved. The trend of his beta hydroxybutyrate slowly decreased day-to-day as day 2 it went from 23 down to 9. On the morning of hospital day 3, it further decreased to 5. At this point, his IV fluids were stopped. And a repeat beta hydroxybutyrate was ordered for 2 PM the afternoon, which was essentially negligible. The case was further discussed with Dr. Mi of nephrology, who signed off on discharge after the unremarkable. Beta hydroxybutyrate level. Status post IV fluid stoppage. As far as the patient's fatty liver, a right upper quadrant ultrasound was ordered. On hospital day 2 that was not quite definitive in ruling in or out hepatitis. We discussed with fatty liver is with the patient and the importance that he follow-up with his primary care physician regarding this moving forward. The patient was subsequently discharged home, which is in [place], [place], and he will follow-up there with his primary care doctor for a post hospital visit and further workup with fatty liver. A four-day oral prescription of antibiotics was sent to his pharmacy in [place], to complete 7 days in the setting of his initial septic presentation. DISCHARGE MEDICATIONS: Please see below. ALLERGIES: Please see below. PHYSICAL EXAMINATION ON DISCHARGE: VITAL SIGNS: Please see below. GENERAL: Pleasant young male lying upright in bed. No acute distress. HEENT: Normocephalic, atraumatic. Noninjected, anicteric sclera. Oral cavity: No pharyngeal erythema or exudate. Mucous membranes appear to be moist. Neck: No lymphadenopathy appreciated. Trachea midline. Neck is supple. CARDIOVASCULAR: Bradycardic rate, regular rhythm. Normal S1, S2. No murmurs or rubs are appreciated. RESPIRATORY: Lungs are clear to endoscopy bilaterally with no adventitious breath sounds appreciated. Breathing room air. No accessory muscle use. Symmetric chest expansion. ABDOMINAL: Normoactive bowel sounds. Abdomen is soft and nondistended. No rigidity appreciated. The tenderness from yesterday's exam seems to have resolved. No significant hepatosplenomegaly appreciated. EXTREMITIES: Bilateral lower extremities are free of edema. 2+ radial pulses bilaterally. No clubbing or cyanosis appreciated. NEUROLOGICAL: No focal deficits appreciated. Non-dysarthric speech. Responding probably all questions commands. PSYCHOLOGICAL: Pleasant mood. Affect appears appropriate. LABORATORY DATA: Please see below. IMAGING: PROGNOSIS: Good ACTIVITY: As tolerated DIET: Return to usual Crohn's-friendly diet DISPOSITION: 01 Home, Self-Care. DISCHARGE INSTRUCTIONS & ITEMS TO FOLLOWUP ON ON OUTPATIENT: -Take Augmentin antibiotic two times per day for 4 days starting on 04/15 to complete 7 total days of antibiotics. -Follow-up with your primary care provider within the next 5-7 days for post- hospitalization visit and to address fatty liver (hepatosteatosis). -Please comply with the above-mentioned treatment plan. -Should presenting symptoms return and/or acutely worsen, please return to the emergency department. -Thank you for the opportunity to take part in your care. DISCHARGE CONDITION: Stable TIME SPENT ON DISCHARGE: 37 minutes. Attending Attestation: Patient independently seen and examined. I have discussed in detail with the resident the findings and plan of treatment as documented by the resident. I agr ee with their findings and treatment plan. I will continue to follow the patient during this hospital stay. Vital Signs/I&Os Vital Signs Date Time Temp Pulse Resp B/P (MAP) Pulse Ox O2 Delivery O2 Flow Rate FiO2 04/14/21 14:00 97.6 54 16 109/62 (78) 98 Room Air I&O- Last 24 Hours up to 6 AM 04/14/21 06:00 Intake Total 3380 ml Output Total 1875 ml Balance 1505 ml Laboratory Data Labs 24H Laboratory Tests 2 04/14/21 05:55: Immature Granulocyte % (Auto) 0.2, Neutrophils (%) (Auto) 51.3, Lymphocytes (%) (Auto) 36.2, Monocytes (%) (Auto) 7.9, Eosinophils (%) (Auto) 3.7H, Basophils (%) (Auto) 0.7, Neutrophils # (Auto) 3.1, Lymphocytes # (Auto) 2.2, Monocytes # (Auto) 0.5, Eosinophils # (Auto) 0.2, Basophils # (Auto) 0.0, Nucleated Red Blood Cells % (auto) 0.0, Anion Gap 6L, Glomerular Filtration Rate > 60.0, Calcium Level 8.2L, Phosphorus Level 2.8#, Magnesium Level 1.9, Total Bilirubin 0.8, Aspartate Amino Transf (AST/SGOT) 20, Alanine Aminotransferase (ALT/SGPT) 29, Alkaline Phosphatase 34L, Total Protein 5.6L, Albumin 3.2, Albumin/Globulin Ratio 1.3, B-Hydroxybutyrate 5.32H 04/14/21 13:58: B-Hydroxybutyrate 0.96 CBC/BMP Laboratory Tests 04/14/21 05:55 Microbiology Microbiology 04/12/21 Blood Culture - Preliminary, Resulted No growth after 24 hours . All specim... 04/12/21 Blood Culture - Preliminary, Resulted No growth after 24 hours . All specim... 04/12/21 Respiratory Virus Panel (PCR) ([facility]) - Final, Complete Discharge Medications Scheduled Amoxicillin/Potassium Clav (Augmentin 500-125 Tablet) 1 Each Tablet, 500 MG PO BID Allergies Coded Allergies: No Known Allergies (Verified , 05/13/03) PIA HALL D.O. Apr 14, 2021 20:45 SABINO EATON MD Apr 17, 2021 06:32
== END 2021-04-14 16:35 | disposition home or self-care (01) | DRG 641 ==
LOC: M ED 13:39 → M ED INP 19:59 → ENRESERV 21:33 → M MS5PR 23:24
PROVIDERS: ADMIT Family Medicine; ATTEND Internal Medicine
DX: E87.2 Acidosis (principal); K50.90 Crohn's disease, unspecified, without complications; R11.10 Vomiting, unspecified; E16.0 Drug-induced hypoglycemia without coma; K76.0 Fatty (change of) liver, not elsewhere classified; F12.90 Cannabis use, unspecified, uncomplicated